=== PATIENT | male | born 1995 | race Caucasian/White ===

== ENCOUNTER → 2018-03-03 10:37 | Outpatient (CLI) | payer BC, OTHER, SELFPAY | PROVIDERS: Visit Provider Orthopaedic Surgery | DX: S83.92XA Sprain of unspecified site of left knee, initial encounter (principal) ==

== ENCOUNTER → 2018-03-11 07:47 | Outpatient (CLI) | payer BC, SELFPAY ==
--- NOTE | 2018-03-11 07:51 | MR_ITS ---
MR knee LT wo con Ordering Physician: Jenni Willoughby MD Patient Age: 22 years: Male HISTORY: ITS.REASON: evaluate for MMT/ meniscal injury TECHNIQUE: Multiplanar multisequence imaging 1.5 [place] MRI. COMPARISON :Plain film left knee 02/23/2018 FINDINGS Medial Meniscal Tear clearly evident. This meniscal tear is most evident at posterior horn with passes in a a vertical oblique fashion through the posterior horn,. Fluid outlines this meniscal tear in this region.. Likely some minimal branching of this tear at posterior horn.This tear then continues to the posterior horn-body junction and and then continues as a more horizontal oblique tear of involving mainly involving the inferior surface of the body of medial meniscus. I would note there is a unusually large volume appearance to the posterior meniscal root region-this is suspect for displaced meniscal fragment probable bucket-handle tear suspected given the overall generous volume at the posterior meniscal root. To involve the inferior surface of the body of medial meniscus. Medial Compartment:. Only minor chondral thinning and scuffing. There is a Small subtle osteochondral irregularity seen at medial femoral condyle posterior weightbearing surface. 5 mm size. There is some mild chondral signal irregularity in this area., Distant superior to the torn posterior horn medial meniscus. Lateral Compartment: Cartilage well-maintained overall at lateral compartment. Only perhaps minor thinning anteriorly at lateral femoral condyle. Lateral Meniscus is overall intact.. There is some slight increased joint fluid which is seen towards the base of the posterior horn but I believe this fluid millimeters legs to the popliteus tendon sheath. Patellofemoral Joint.: Overall the cartilage is fairly well maintained but there is some mild Chondral edema/irregularity towards the inferior aspect of the lateral facet of patella.. Noting increase signal within the cartilage here. Patella. Axial image 10 Moderate/generous joint effusion with moderate Neff's cyst evident which is seen wrapping about the medial gastrocnemius muscle. There may be some minimal leakage from this Neff's cyst noted in the wispy fluid extending overlying the medial head of gastrocnemius No others mild edema in the soft tissues otherwise posterior to be an surrounding the vessels. ACL appears to be torn/transected.do not identify the ACL. PCL is thickened intact The quadriceps and patellar tendon appear intact. The MCL and lateral collateral ligament unremarkable.. --------IMPRESSION: ACL Tear Medial Meniscal Tear-involving posterior horn and body of medial meniscus. Possible & suspect displaced meniscal fragment accounting for the prominent volume at posterior horn/ posterior meniscal root (possible bucket-handle tear) . Joint effusion with Neff's cyst. Possible minimal leakage on this Neff's cyst along gastrocnemius
== END ==
PROVIDERS: PCP Family Medicine; Visit Provider Orthopaedic Surgery
DX: M25.562 Pain in left knee (principal)
CPT/HCPCS: 73721

== ENCOUNTER 2018-03-13 10:10 | Outpatient (RCR) | payer BC, OTHER, SELFPAY | END 2018-03-13 10:20 | disposition home or self-care (01) | LOC: PT 10:10 | PROVIDERS: Visit Provider Orthopaedic Surgery | DX: S83.207A Unspecified tear of unspecified meniscus, current injury, left knee, initial encounter (principal); S83.92XA Sprain of unspecified site of left knee, initial encounter | CPT/HCPCS: 97760 ==

== ENCOUNTER → 2018-03-26 08:26 | Outpatient (CLI) | payer BC, SELFPAY ==
--- NOTE | 2018-03-26 08:33 | XR_ITS ---
XR knee LT 2V HISTORY: Follow-up ACL repair ITS.REASON: Lt knee Acl tear ORDERING PHYSICIAN: Jenni Willoughby MD PATIENT AGE: 22 years FINDINGS: Status post ACL repair with a tunnel within the distal femur within the medial aspect of the lateral femoral condyle and within the central aspect of the proximal tibia metallic anchoring device along the distal femur laterally. There is normal alignment. Mild soft tissue swelling is noted along the supra patellar and infrapatellar region. Tiny opacities are present in the soft tissues at this area could be related to metallic or bony fragments from the previous surgery. IMPRESSION: Good alignment status post ACL repair with soft tissue swelling in the supra and infrapatellar region
== END ==
PROVIDERS: PCP Family Medicine; Visit Provider Orthopaedic Surgery
DX: S83.249A Other tear of medial meniscus, current injury, unspecified knee, initial encounter (principal); S83.90XA Sprain of unspecified site of unspecified knee, initial encounter
CPT/HCPCS: 73560

== ENCOUNTER 2018-06-16 08:00 | Outpatient (RCR) | payer BC, OTHER, SELFPAY ==
--- NOTE | 2018-03-27 15:33 | [facility]H.PTOPEV ---
PT Outpatient Evaluation Rehab PT Outpatient Evaluation Start: 03/27/18 14:05 Freq: Status: Active Protocol: Document 03/27/18 14:06 PHOSANTOS (Rec: 03/27/18 15:33 PHORNE [id number]) Electronically Signed By Judson Valiente, PT 03/27/18 14:06 Outpatient Therapy Subjective History Subjective History Pt is a 22 yowm presenting with left ACL reconstruction and partial medial menisectomy 03/19/18 due to a baseball injury occuring two years ago and aggravating symptoms due to walking up the stairs a week before surgery. Pt c/o mild pain and some residual numbness in the left knee. Pt reports no other surgeries. Pt walked into clinic w/o crutches and was advised to use them until cleared by physician. Chief Complaint Pain Symptom Type Throb Symptoms Relieved By Rest/Positioning Symptoms Aggravated By Sitting Standing Physical Activity Prior Functional Limitations None Current Functional Limitations Standing Sitting Squatting Recreation Activity Walking Stairs Symptom Description Constant but Variable Level of pain today (0-10) 4 Pain scale - at its best (0-10) 2 Pain scale - at its worst (0-10) 7 Hip/Knee Eval Gait Observation General Gait Pattern Observation Antalgic Gait Assistive Device Assistive Devices None / NA Palpation Tenderness left Knee Palpation Finding Tenderness Knee Palpation Overall Comment Pt reports tenderness over patella and into the knee joint. Hip Palpation Findings None/Normal MMT Hip Flexion Strength Grade 3 Fair Hip Abduction Strength Grade 3 Fair Hip Adduction Strength Grade 3 Fair Hip Extension Strength Grade 3 Fair Knee Extension Strength Grade 2+ Poor+ Knee Flexion Strength Grade 2+ Poor+ ROM Knee Flexion Active Range of Motion ( 6-80 degrees) Knee ROM Limitations Pain Sensation bilateral LE Dermatome Level L2 L3 L4 Comment Normal Outpatie
--- NOTE | 2018-05-21 09:29 | HMH.RHREAS ---
Rehab Reassessment Rehab OP Re-assessment Start: 05/21/18 09:21 Freq: Status: Active Protocol: Document 05/21/18 09:21 ILEANA (Rec: 05/21/18 09:28 PHOSANTOS [id number]) Electronically Signed By Judson Valiente, PT 05/21/18 09:21 Rehab Re-assessment Subjective Subjective Pt reports 0/10 pain when ambulating. Pt states mild discomfort while performing exercises. Pt reports feeling like gait is improving. Objective Objective Notes AROM L knee 0-122 MMT 4/5 throughout LLE Assessment Progress Assessment Progressing as Expected Assessment Notes Pt ambulates with LLE stiff and hip hikes or vaults to compensate. Pt continues to improve ROM, strength of the LLE, balance, and gait. Gait abnormalities seem to decrease with increased pepper. Patient goals met STG: All LT,4,5 Goals Not Met LTG 2 and 3 Plan Plan ROM, strength, balance, gait Frequency of Therapy 2 Duration of therapy 6 Time and Billing Re-Eval Time 10 Re-Eval Billing Units 1 PHYSICIAN CERTIFICATION: I certify the specified therapy services for Kareem Tesfaye are required, authorized, and reviewed every 30 days.
== END 2018-06-16 08:05 | disposition home or self-care (01) ==
LOC: PT 08:00
PROVIDERS: Visit Provider Orthopaedic Surgery
DX: S83.512D Sprain of anterior cruciate ligament of left knee, subsequent encounter (principal); S83.232D Complex tear of medial meniscus, current injury, left knee, subsequent encounter
CPT/HCPCS: 97010; 97014; 97016; 97110; 97112; 97140; 97163; 97164; G0283